=== PATIENT | female | born 1935 | race Caucasian/White ===

== ENCOUNTER 2019-01-08 15:14 | Inpatient (IN) ==
--- NOTE | 2019-01-08 20:41 | Internal Med History&Physical ---
<Bear Null - Last Filed: 01/09/19 02:15> Date of Encounter: 01/09/19 Time of Encounter: 21:40 Internal Medicine - H&P: HPI Chief complaint: Anemia Admitted From: Emergency Dept Plans for Post Hospital Care: Home History of present illness: Ms. Cabrales is a 83 year old female with past medical history of CHF, diabetes, glaucoma, hyperlipidemia, hypertension who presented to [place] emergency department from longterm facility ([facility]) after labs are drawn and showed a significant anemia. Of note, patient has dementia at baseline and is unable to provide a reliable history. History from chart review. Patient was found to have a hemoglobin of 2.9 in [facility]. Patient's baseline hemoglobin appears to be between 11 and 13. Patient is able answer questions at this time, her only complaint at this time is back pain. She denies any nausea, vomiting or changes in bowel movements. She does not remember any previous bleeding. She denies any ecchymosis. Per chart review, patient has had multiple endoscopies. She follows with Dr. May and had a colonoscopy on 09/07/12 showing proctitis with 2 polyps removed which were serrated adenomas with low-grade dysplasia. She also presents with possible rectal mass on 11/30/16 which showed rectal prolapse and underwent a robotic colectomy. She did see [facility] on 08/14/18 for complaint of positive fecal occult blood test. Colonoscopy was discussed this time however I am unable to see if this was done. In the [facility] emergency department, vital signs were stable. Laboratory results show a hemoglobin of 3.1, hematocrit 11.4, platelets 463. Coagulation studies showed INR of 1.2, PT mildly elevated at 14.0, APTT of 25.9. Chemistry showed sodium of 130, otherwise relatively unremarkable. Stool occult blood was positive. Patient unable to remember if she is on a blood thinner however home medications reviewed and patient is not on antiplatelet or inadequate ventilation. General surgery was called by [place] emergency department Past medical history: As above Past surgical history: ? Colectomy Social history: Unknown Family history: Unknown Past Med Surg Social Fam HX - Past Medical History Medical history: non-contributory, CHF, diabetes, glaucoma, hyperlipidemia, hypertension, other Additional medical history: H/O MENTAL ILLNESS. BERMUDEZ-RYAN SYNDROME. HYPOTENSION. ANGIO EDEMA. HYPERCALEMIA. PERIPHERAL NEUROPATHY Psychiatric history: depression - Past Surgical History Surgical History: other Additional surgical history: COLONOSCOPY 2013. 12/10/16 COLON RESECTION @[facility] W/DR MAY - Social History Smoking Status: Never smoker Smokeless Tobacco Status: No Alcohol use: none Drug use: unknown Internal Medicine - H&P: Meds Cyanocobalamin (Vitamin B-12) [Vitamin B-12] 1,000 mcg SL DAILY 12/10/16 [History] Latanoprost [Xalatan] 1 drop BOTH EYES HS 12/10/16 [History] Omeprazole [PriLOSEC] 20 mg PO DAILY 12/10/16 [History] Timolol [Betimol] 1 drop BOTH EYES QAM 12/10/16 [History] Atorvastatin [Lipitor] 20 mg PO HS 01/08/19 [History] Buspirone HCl [Buspar] 5 mg PO BID 01/08/19 [History] Cranberry Fruit [Cranberry] 900 mg PO DAILY 01/08/19 [History] Furosemide [Lasix] 20 mg PO DAILY 01/08/19 [History] HydrOXYzine [Atarax] 10 mg PO BID 01/08/19 [History] Metoprolol Succinate [Toprol Xl] 25 mg PO DAILY 01/08/19 [History] Mirtazapine [Remeron] 30 mg PO DAILY 01/08/19 [History] Potassium Chloride 20 meq PO DAILY 01/08/19 [History] risperiDONE [Risperdal] 0.25 mg PO QAM 01/08/19 [History] risperiDONE [Risperidone] 0.5 mg PO QPM 01/08/19 [History] Allergy/AdvReac Type Severity Reaction Status Date / Time Penicillins Allergy Rash Verified 12/10/16 10:47 ROS unobtainable: due to mental status All Systems PM: A 10-system review of systems was performed and is negative for pertinent findings except as documented above in the HPI. - Constitutional Vitals: Temp Pulse Resp BP Pulse Ox 99.1 F 83 18 147/80 91 01/08/19 20:36 01/08/19 20:36 01/08/19 20:36 01/08/19 20:36 01/08/19 20:36 Exam: Gen.: Vitals noted. No acute distress. AAOx3, resting comfortably in bed. Frail-appearing HEENT: PERRL/EOMI, oropharynx clear, Normocephalic, atraumatic, MMM, pale conjunctiva Cardiac: RRR, no murmur, +S1/S2, No BLE edema Pulmonary: CTA bilaterally, no wheezes, rales or rhonchi, equal chest expansion, unlabored breathing Abdomen: soft, mildly tender in epigastric region, BS noted, no guarding, no palpable HSM Skin: warm and dry, no visible lesions. MSK: ROM not assessed, no joint swelling noted, gait no assessed while in bed. Non tender calf or clubbing Neuro: A&Ox3, moves all extremities, no focal deficits, sensation intact Psych: AOx3. Patient does answer questions appropriately however does not appear to have accurate insight or judgment. Internal Med - H&P Results - Labs CBC & Chem 7: 01/08/19 20:35 - Assessment and Plan (1) Anemia Current Visit: Yes Status: Acute Assessment and plan: - Patient presents with severe anemia with hemoglobin of 2.8 on presentation - Patient did receive 2 units packed red blood cells and repeat hemoglobin up to 7.4 - Etiology suspect is GI in nature - FOBT was positive in the emergency room - Patient's baseline hemoglobin appears to be between 11 and 13 - Coagulation studies relatively unremarkable - Home medications did not show any evidence of anticoagulation or antiplatelets - Patient did have several outpatient endoscopies. - Colonoscopy on 09/07/12 shows proctitis with 2 polyp showing serrated adenoma with low dysplasia - Office visit on 11/30/16 shows prolapse of the rectum. At that time about colectomy was recommended - 08/14/18, office visit with [facility] for positive fecal occult blood. Unclear if patient did have colonoscopy at that time Plan - Patient transfused 2 units PRBC, will continue to trend hemoglobin every 6 hours - Repeat of 7.4, will infuse additional 1 unit - 20 mg IV Lasix after third unit to prevent fluid overload - Currently hemodynamically stable - [facility] has been consulted, appreciate recommendations Qualifiers: Anemia type: iron deficiency Iron deficiency anemia type: chronic blood loss Qualified Code(s): D50.0 - Iron deficiency anemia secondary to blood loss (chronic) (2) Guaiac + stool Current Visit: Yes Status: Acute Assessment and plan: - Suspect GI bleed for anemia as above (3) Dementia Current Visit: Yes Status: Chronic Assessment and plan: - Patient presents alert and oriented 3 and answering questions however the questions are often inappropriate - Suspect that this is baseline for patient - Consent for blood transfusions obtained from family - Continue to monitor Qualifiers: Dementia type: Alzheimer's disease Alzheimer's disease onset: unspecified onset Dementia behavioral disturbance: without behavioral disturbance Qualified Code(s): G30.9 - Alzheimer's disease, unspecified; F02.80 - Dementia in other diseases classified elsewhere without behavioral disturbance (4) HTN (hypertension) Current Visit: Yes Status: Chronic Assessment and plan: Hold antihypertensives in the setting of acute bleed Currently well-controlled Qualifiers: Hypertension type: essential hypertension Qualified Code(s): I10 - Essential (primary) hypertension (5) Diabetes Current Visit: Yes Status: Acute Assessment and plan: - Per chart review - Blood sugar of 110 in [facility] - Every 6 hours Accu-Cheks while patient is nothing by mouth - Low sliding scale insulin Qualifiers: Diabetes mellitus type: type 2 Diabetes mellitus senior living insulin use: without adjunct faculty for medical terminology use Diabetes mellitus complication status: without complication Qualified Code(s): E11.9 - Type 2 diabetes mellitus without complications (6) DVT prophylaxis Current Visit: Yes Status: Acute Assessment and plan: No chemical prophylaxis in the setting of GI bleed - Time Spent With Patient Total time spent is greater than 50% in coordination of care (as documented) at patient's floor/unit and/or counseling patient: <Ella Corbett Z - Last Filed: 01/11/19 12:46> Date of Encounter: 01/09/19 Internal Medicine - H&P: HPI History of present illness: Ms. Cabrales is a 83 year old female All Systems PM: A 10-system review of systems was performed and is negative for pertinent findings except as documented above in the HPI. - Constitutional Vitals: Temp Pulse Resp BP Pulse Ox 98.4 F 83 16 140/77 97 01/11/19 11:19 01/11/19 11:19 01/11/19 11:19 01/11/19 11:19 01/11/19 11:19 Internal Med - H&P Results - Labs CBC & Chem 7: 01/11/19 01:01 01/11/19 01:01 Labs: Short CBC 01/10/19 01/11/19 Range/Units 17:54 01:01 WBC 11.8 H (4.3-11.1) K/mcL Hgb 8.5 L D 7.9 L (11.5-15.4) g/dL Hct 27.3 L 25.5 L (35.3-44.9) % Plt Count 264 (140-400) K/mcL BMP 01/11/19 01:01 Sodium 134 L Potassium 3.9 Chloride 102 Carbon Dioxide 27 BUN 13 Creatinine 0.68 Glucose 124 H Calcium 7.8 L Liver Function 01/11/19 Range/Units 01:01 Total Bilirubin 0.4 (0.3-1.0) mg/dL AST 12 L (13-39) Units/L ALT 22 (7-52) Units/L Alkaline Phosphatase 80 (34-104) Units/L Albumin 2.4 L (3.5-5.7) g/dL - Assessment and Plan (1) Anemia Current Visit: Yes Status: Acute Qualifiers: Anemia type: iron deficiency Iron deficiency anemia type: chronic blood loss Qualified Code(s): D50.0 - Iron deficiency anemia secondary to blood loss (chronic) (2) Melena Current Visit: Yes Status: Acute (3) Dementia Current Visit: Yes Status: Chronic Qualifiers: Dementia type: Alzheimer's disease Alzheimer's disease onset: unspecified onset Dementia behavioral disturbance: without behavioral disturbance Qualified Code(s): G30.9 - Alzheimer's disease, unspecified; F02.80 - Dementia in other diseases classified elsewhere without behavioral disturbance (4) HTN (hypertension) Current Visit: Yes Status: Chronic Qualifiers: Hypertension type: essential hypertension Qualified Code(s): I10 - Essen tial (primary) hypertension (5) Diabetes Current Visit: Yes Status: Chronic Qualifiers: Diabetes mellitus type: type 2 Diabetes mellitus senior living insulin use: without adjunct faculty for medical terminology use Diabetes mellitus complication status: without complication Qualified Code(s): E11.9 - Type 2 diabetes mellitus without complications (6) DVT prophylaxis Current Visit: Yes Status: Acute (7) Colon polyp Current Visit: Yes Status: Acute Qualifiers: Colon polyp type: unspecified Colon location: sigmoid Qualified Code(s): D12.5 - Benign neoplasm of sigmoid colon - Time Spent With Patient Total time spent is greater than 50% in coordination of care (as documented) at patient's floor/unit and/or counseling patient: - Attending Attestation I performed a history and physical examination of the patient and discussed his management with the resident. I reviewed the residents note and agree with the documented findings and plan of care.
[2019-01-08 20:58] LABS: Basophils % 0.3 %; Eosinophils # 0.1 K/mcL (0.0-0.6); Eosinophils % 0.9 %; Hematocrit 23.6 % (35.3-44.9); Hemoglobin 7.2 g/dL (11.5-15.4); Immature Granulocytes % 0.9 % (0-4); Lymphocytes # 1.6 K/mcL (0.6-4.6); Lymphocytes % 15.5 %; Mean Corpuscular HGB Conc 30.5 g/dL (31.6-35.5); Mean Corpuscular Volume 75.4 fL (83.0-100.0); Mean Platelet Volume 10.4 fL (9.4-12.4); Monocytes % 10.1 %; Neutrophils # 7.3 K/mcL (1.6-8.9); Nucleated Red Blood Cells 0.4 /100 WBC (0); Platelet Count 462 K/mcL (140-400); Red Blood Count 3.13 M/mcL (3.82-4.97); Red Cell Distribution Width 24.4 % (11.5-14.5); Segmented Neutrophils % 72.3 %; White Blood Count 10.1 K/mcL (4.3-11.1)
[2019-01-08] MEDS ORDERED: Naloxone 0.4 MG/ML INJ IVP PRN (21:02)
[2019-01-08] MEDS ORDERED: Ondansetron 4 MG/2 ML VIAL IVP PRN (21:02)
[2019-01-08] MEDS ORDERED: Furosemide 20 MG/2 ML VIAL IVP ONE (21:14)
[2019-01-08] MEDS ORDERED: 0.9 % Sodium Chloride 1,000 ML IVC SCH (21:15)
[2019-01-08 21:22] LABS: Hypochromasia Present (Not Present)
[2019-01-08 21:23] LABS: Anisocytosis 1+ (Not Present); Basophilic Stippling 1+ (Not Present)
--- NOTE | 2019-01-08 21:30 | AcuteCare Surgery Consult Note ---
Date of Encounter: 01/09/19 Time of Encounter: 21:00 Assessment and Plan (1) Anemia Current Visit: Yes Status: Inactive Severe. Unable to obtain from pt a hx of symptoms c/w symptomatic anemia. Agree with transfusion 2 units PRBC. Hgb after blood transfusion was 7.2. Recommend colonoscopy. Indications for colonoscopy are discussed in detail with pt at bedside and with her brother by phone who is her medical POA. Procedure, risk and benefits of colonscopy are discussed. Pt understands risks and possible complications. Possible complications include but, are not limited to bleeding, infection or perforation. Pt understands and wishes to proceed as recommended. Consent is obtained. Inpatient colonoscopy is scheduled. Prep today and scope tomorrow. Qualifiers: Anemia type: iron deficiency Iron deficiency anemia type: chronic blood loss Qualified Code(s): D50.0 - Iron deficiency anemia secondary to blood loss (chronic) (2) Guaiac + stool Current Visit: Yes Status: Acute see above (3) Melena Current Visit: Yes Status: Acute see above (4) HTN (hypertension) Current Visit: Yes Status: Chronic Stable; primary service to manage. Qualifiers: Hypertension type: essential hypertension Qualified Code(s): I10 - Essential (primary) hypertension (5) Diabetes Current Visit: Yes Status: Acute stable; primary service to manage Qualifiers: Diabetes mellitus type: type 2 Diabetes mellitus group home insulin use: without ocean transportation intermediary use Diabetes mellitus complication status: without complication Qualified Code(s): E11.9 - Type 2 diabetes mellitus without complications (6) Dementia Current Visit: Yes Status: Chronic Qualifiers: Dementia type: Alzheimer's disease Alzheimer's disease onset: unspecified onset Dementia behavioral disturbance: without behavioral disturbance Qualified Code(s): G30.9 - Alzheimer's disease, unspecified; F02.80 - Dementia in other diseases classified elsewhere without behavioral disturbance History of Present Illness Consult date: 01/08/19 Reason for consult: other (anemia) Requesting physician: Bear Null History of present illness: This 83 y/o female presents to [facility] ED from a usp due to Hgb 2.9. Hgb was repeated and found to be 3.3. Pt had dementia and is an unreliable historian. However, she denies abdominal pain. She reports melenotic stools. She denies BRBPR. She denies N/V. She reports normal appetite. She cannot confirm surgical hx but, her record indicates hx of CANCELLED surgery in 2017 for colectomy for rectal prolapse. Past Med Surg Social Fam HX - Past Medical History Medical history: non-contributory, CHF, diabetes, glaucoma, hyperlipidemia, hypertension, other Additional medical history: H/O MENTAL ILLNESS. BERMUDEZ-RYAN SYNDROME. HYPOTENSION. ANGIO EDEMA. HYPERCALEMIA. PERIPHERAL NEUROPATHY Psychiatric history: depression - Past Surgical History Surgical History: other Additional surgical history: COLONOSCOPY 2012. 12/10/16 COLON RESECTION @[facility] W/DR MAY - Social History Smoking Status: Never smoker Smokeless Tobacco Status: No Alcohol use: none Drug use: unknown Medications and Allergies Cyanocobalamin (Vitamin B-12) [Vitamin B-12] 1,000 mcg SL DAILY 12/10/16 [History] Latanoprost [Xalatan] 1 drop BOTH EYES HS 12/10/16 [History] Omeprazole [PriLOSEC] 20 mg PO DAILY 12/10/16 [History] Timolol [Betimol] 1 drop BOTH EYES QAM 12/10/16 [History] Atorvastatin [Lipitor] 20 mg PO HS 01/08/19 [History] Buspirone HCl [Buspar] 5 mg PO BID 01/08/19 [History] Cranberry Fruit [Cranberry] 900 mg PO DAILY 01/08/19 [History] Furosemide [Lasix] 20 mg PO DAILY 01/08/19 [History] HydrOXYzine [Atarax] 10 mg PO BID 01/08/19 [History] Metoprolol Succinate [Toprol Xl] 25 mg PO DAILY 01/08/19 [History] Mirtazapine [Remeron] 30 mg PO DAILY 01/08/19 [History] Potassium Chloride 20 meq PO DAILY 01/08/19 [History] risperiDONE [Risperdal] 0.25 mg PO QAM 01/08/19 [History] risperiDONE [Risperidone] 0.5 mg PO QPM 01/08/19 [History] Allergy/AdvReac Type Severity Reaction Status Date / Time Penicillins Allergy Rash Verified 12/10/16 10:47 Review of Systems All systems PM: The remainder of the systems were reviewed and are negative - Constitutional no anorexia, no chills, no fatigue, no fever(s), no night sweats, no weakness, no weight gain, no weight loss - EENT Nose, mouth and throat: dry mouth, no dizziness, no nasal congestion, no nasal discharge, no sinus pain, no sinus pressure, no sore throat - Cardiovascular no chest pain, no dyspnea, no edema - Respiratory no cough, no dyspnea, no wheezing - Gastrointestinal melena, no abdominal pain, no constipation, no diarrhea, no heartburn, no nausea, no vomiting - Genitourinary Genitourinary: no difficulty urinating, no dysuria, no flank pain - Musculoskeletal no back pain, no joint swelling, no limited range of motion, no neck pain - Integumentary dry skin, no pruritus, no rash, no wounds, no jaundice - Psychiatric confusion, memory loss - Hematologic/Lymphatic no easy bleeding, no easy bruising General Surgery Exam Initial Vital Signs Temp Pulse Resp BP Pulse Ox 99.1 F 83 18 147/80 91 01/08/19 20:36 01/08/19 20:36 01/08/19 20:36 01/08/19 20:36 01/08/19 20:36 - General physical appearance no distress, no pain. negative: jaundice - Eyes PERRL, normal ocular movement. negative: icteric - ENT no congestion, dry mucosa. negative: nasal discharge - Neck no masses, trachea midline, no lymphadectomy, no venous distension - Respiratory normal respiratory effort, clear to auscultation - Cardiovascular Cardiovascular exam: Present: RRR. Absent: JVD - Abdomen Abdomen general surgery: Present: bowel sounds present, soft, non tender. Absent: distended - Genitourinary Present: normal external genitalia - Integumentary Integumentary general surgery: Present: warm and dry - Neurologic Present: normal coordination, confused - Musculoskeletal Present: normal posture - Psychiatric Psychiatric general surgery: Present: oriented to place Exam Initial Vital Signs Temp Pulse Resp BP Pulse Ox 99.1 F 83 18 147/80 91 01/08/19 20:36 01/08/19 20:36 01/08/19 20:36 01/08/19 20:36 01/08/19 20:36 Results - Labs 01/08/19 20:35 Abnormal lab results RBC 3.13 M/mcL (3.82-4.97) L 01/08/19 20:35 Hgb 7.2 g/dL (11.5-15.4) L D 07/08/19 20:35 Hct 23.6 % (35.3-44.9) L 01/08/19 20:35 MCV 75.4 fL (83.0-100.0) L D 01/08/19 20:35 MCH 23.0 pg (28.0-33.3) L 01/08/19 20:35 MCHC 30.5 g/dL (31.6-35.5) L 01/08/19 20:35 RDW 24.4 % (11.5-14.5) H 01/08/19 20:35 Plt Count 462 K/mcL (140-400) H 01/08/19 20:35 Nucleated RBCs/100 WBC 0.4 /100 WBC (0) H 01/08/19 20:35 Present (Not Present) A 01/08/19 20:35 1+ (Not Present) A 01/08/19 20:35 1+ (Not Present) A 01/08/19 20:35 All other labs normal. Consult Discharge Plan - Plan Referrals: NONE,PCP [Primary Care Provider] -
[2019-01-08] MEDS: Pantoprazole 40 MG VIAL IVP SCH (21:42)
[2019-01-08] MEDS ORDERED: *HR* Dextrose 50 % in Water (Syg) 50 ML SYRINGE IVP PRN (23:47)
[2019-01-08] MEDS ORDERED: D5% in Water 1,000 ML IVC PRN (23:47)
[2019-01-08] MEDS ORDERED: Dextrose Gel 15 GM/37.5 ML TUBE PO PRN ×2 (23:47)
[2019-01-09] MEDS: Insulin LISPRO 300 UNITS/3 ML VIAL SQ SCH ×3 (01:35→11:51)
[2019-01-09 04:39] LABS: INR 1.1; Prothrombin Time 12.8 Seconds (9.4-12.1)
[2019-01-09 04:40] LABS: Estimated Average Glucose 120 mg/dl
[2019-01-09 04:41] LABS: Basophils % 0.4 %; Eosinophils # 0.1 K/mcL (0.0-0.6); Eosinophils % 0.9 %; Hematocrit 23.3 % (35.3-44.9); Hemoglobin 7.3 g/dL (11.5-15.4); Immature Granulocytes % 0.9 % (0-4); Lymphocytes % 11.4 %; Mean Corpuscular HGB Conc 31.3 g/dL (31.6-35.5); Mean Corpuscular Hemoglobin 24.1 pg (28.0-33.3); Mean Corpuscular Volume 76.9 fL (83.0-100.0); Mean Platelet Volume 10.7 fL (9.4-12.4); Monocytes # 0.8 K/mcL (0.0-1.3); Monocytes % 9.5 %; Neutrophils # 6.6 K/mcL (1.6-8.9); Nucleated Red Blood Cells 0.4 /100 WBC (0); Platelet Count 374 K/mcL (140-400); Red Blood Count 3.03 M/mcL (3.82-4.97); Red Cell Distribution Width 21.8 % (11.5-14.5); Segmented Neutrophils % 76.9 %; White Blood Count 8.5 K/mcL (4.3-11.1)
[2019-01-09 04:42] LABS: Activated Partial Thrombo Time 25.8 Seconds (26.0-36.0)
[2019-01-09 05:21] LABS: BUN/Creatinine Ratio 22 (6-26); Blood Urea Nitrogen 15 mg/dL (8-23); Calcium 8.3 mg/dL (8.6-10.3); Carbon Dioxide 31 mEq/L (23-29); Chloride 99 mEq/L (98-107); Glucose 106 mg/dL (70-105); Osmolality,Calculated 287 (280-300); Potassium 2.6 mEq/L (3.5-5.1); Sodium 138 mEq/L (136-145); eGFR For African Americans > 60 (> 60); eGFR For Non-African Americans > 60 (> 60)
[2019-01-09] MEDS ORDERED: Potassium Chloride 40 MEQ, Lidocaine 1% 2 ML in D5% in Water 500 ML IVPB ONE (05:53)
[2019-01-09] MEDS: Pantoprazole 40 MG VIAL IVP SCH ×2 (05:58→18:34)
[2019-01-09] MEDS ORDERED: Pantoprazole 40 MG VIAL IVP SCH (06:00)
[2019-01-09 08:49] LABS: Magnesium 1.7 mg/dL (1.6-2.6)
[2019-01-09] MEDS ORDERED: *HR* Propofol 200 MG/20 ML VIAL IVP ONE ×2 (11:46→12:12)
[2019-01-09] MEDS ORDERED: Lidocaine -MPF 2% 2 ML VIAL ONE (11:47)
--- NOTE | 2019-01-09 12:25 | Anesthesia Evaluation PreOp ---
Date of Encounter: 01/09/19 Time of Encounter: 12:22 - Past History Planned Operation: Colonoscopy Cardiac History: CHF, HTN, Hyperlipidemia Pulmonary History: Smoker IT ADMIN History: Other (dementia) Other Medical History: Diabetes Type II, GERD Anesthesia History: No Prior Anesthetic Complications, Past Anesthesia Alcohol Use: none Drug use: unknown Medications and Allergies Cyanocobalamin (Vitamin B-12) [Vitamin B-12] 1,000 mcg SL DAILY 12/10/16 [History] Latanoprost [Xalatan] 1 drop BOTH EYES HS 12/10/16 [History] Omeprazole [PriLOSEC] 20 mg PO DAILY 12/10/16 [History] Timolol [Betimol] 1 drop BOTH EYES QAM 12/10/16 [History] Atorvastatin [Lipitor] 20 mg PO HS 01/08/19 [History] Buspirone HCl [Buspar] 5 mg PO BID 01/08/19 [History] Cranberry Fruit [Cranberry] 900 mg PO DAILY 01/08/19 [History] Furosemide [Lasix] 20 mg PO DAILY 01/08/19 [History] HydrOXYzine [Atarax] 10 mg PO BID 01/08/19 [History] Metoprolol Succinate [Toprol Xl] 25 mg PO DAILY 01/08/19 [History] Mirtazapine [Remeron] 30 mg PO DAILY 01/08/19 [History] Potassium Chloride 20 meq PO DAILY 01/08/19 [History] risperiDONE [Risperdal] 0.25 mg PO QAM 01/08/19 [History] risperiDONE [Risperidone] 0.5 mg PO QPM 01/08/19 [History] Allergy/AdvReac Type Severity Reaction Status Date / Time Penicillins Allergy Rash Verified 12/10/16 10:47 - Meds/Allergy Pre-op Review Medications Reviewed: Yes Allergies Reviewed: Yes Beta Blockers on Current Med List: Yes Anesthesia Results - Labs 01/09/19 03:29 01/09/19 03:29 - Imaging EKG: report reviewed (12/03/2016 SINUS RHYTHM WITH SINUS ARRHYTHMIA) Anesthesia Exam Vital Signs/O2 Sat/Glucose, Most Recent Temp Pulse Resp BP Pulse Ox 98.6 F 70 18 140/75 98 01/09/19 11:08 01/09/19 11:08 01/09/19 11:08 01/09/19 11:08 01/09/19 11:08 Blood Glucose* 102 - HEENT Pupil (Motor): EOMI Mallampati: II Teeth: Missing, Poor dentition Denture Type: Upper: Complete Oral Opening: Greater than 3 - IT ADMIN LOC: Oriented IT ADMIN Motor: Normal RUE, Normal LUE, Normal RLE, Normal LLE, Normal Face IT ADMIN Sensory: Normal: RUE, LUE, RLE, LLE, Face - Cardiac Rhythm: Regular Murmur: None - Pulmonary Breath Sounds: bilateral Clear Respiratory Effort: Symmetrical Anesthesia Assess/Plan ASA Score: 3 Level of consciousness: Cooperative, Oriented, Tranquil Anesthetic Plan: MAC Recovery Plan: PACU
[2019-01-09 14:17] LABS: Basophils % 0.4 %; Eosinophils # 0.1 K/mcL (0.0-0.6); Eosinophils % 0.6 %; Hemoglobin 7.4 g/dL (11.5-15.4); Immature Granulocytes % 0.9 % (0-4); Lymphocytes # 0.8 K/mcL (0.6-4.6); Lymphocytes % 8.1 %; Mean Corpuscular HGB Conc 29.6 g/dL (31.6-35.5); Mean Corpuscular Hemoglobin 23.7 pg (28.0-33.3); Mean Corpuscular Volume 80.1 fL (83.0-100.0); Mean Platelet Volume 10.1 fL (9.4-12.4); Monocytes # 0.8 K/mcL (0.0-1.3); Neutrophils # 8.2 K/mcL (1.6-8.9); Nucleated Red Blood Cells 0.2 /100 WBC (0); Platelet Count 320 K/mcL (140-400); Red Blood Count 3.12 M/mcL (3.82-4.97); Red Cell Distribution Width 22.8 % (11.5-14.5)
--- NOTE | 2019-01-09 14:27 | Acute Care Surgery Event Note ---
Date of Encounter: 01/09/19 Time of Encounter: 14:00 Colonoscopy was negative for GI bleeding. Resume regular diet. Suspect anemia is not from acute blood loss. Check iron profile. Pt has responded appropriately to transfusion of pRBC. If H&H remains stable then DC home with f/u PCP or dental technician. Surgery signing off. Thank you for allowing us to participate in this pt's care.
[2019-01-09 14:59] LABS: % Iron Saturation 4 % (15-50); BUN/Creatinine Ratio 20 (6-26); Blood Urea Nitrogen 13 mg/dL (8-23); Calcium 7.9 mg/dL (8.6-10.3); Carbon Dioxide 30 mEq/L (23-29); Chloride 101 mEq/L (98-107); Glucose 107 mg/dL (70-105); Iron 18 mcg/dL (50-170); Osmolality,Calculated 287 (280-300); Potassium 3.3 mEq/L (3.5-5.1); Sodium 138 mEq/L (136-145); Transferrin 302 mg/dL (203-362); eGFR For African Americans > 60 (> 60); eGFR For Non-African Americans > 60 (> 60)
--- NOTE | 2019-01-09 17:51 | Internal Med Progress Note ---
Hospitalist Progress Note - Encounter Date of Encounter: 01/09/19 Time of Encounter: 09:15 - Subjective Interval History: No acute events overnight. Patient denied any fever, chills or masses. Patient had no abdominal pain, nausea or vomiting. She had no bloody bowel movements overnight. - Exam Vitals: Temp Pulse Resp BP Pulse Ox 97.8 F 731 18 122/74 92 01/09/19 15:56 01/09/19 15:56 01/09/19 15:56 01/09/19 15:56 01/09/19 15:56 Exam: Gen.: Vitals noted. No acute distress. AAOx3, resting comfortably in bed. Frail-appearing HEENT: PERRL/EOMI, oropharynx clear, Normocephalic, atraumatic, MMM, pale conjunctiva Cardiac: RRR, no murmur, +S1/S2, No BLE edema Pulmonary: CTA bilaterally, no wheezes, rales or rhonchi, equal chest expansion, unlabored breathing Abdomen: soft, mildly tender in epigastric region, BS noted, no guarding, no palpable HSM Skin: warm and dry, no visible lesions. MSK: ROM not assessed, no joint swelling noted, gait no assessed while in bed. Non tender calf or clubbing Neuro: A&Ox3, moves all extremities, no focal deficits, sensation intact Psych: AOx3. Patient does answer questions appropriately however does not appear to have accurate insight or judgment. - Assessment and Plan (1) Anemia Current Visit: Yes Status: Acute (2) DVT prophylaxis Current Visit: Yes Status: Acute (3) Diabetes Current Visit: Yes Status: Chronic (4) Melena Current Visit: Yes Status: Acute (5) Dementia Current Visit: Yes Status: Chronic (6) HTN (hypertension) Current Visit: Yes Status: Chronic (7) Colon polyp Current Visit: Yes Status: Acute - Summary of Assessment and Plan Summary of Assessment and Plan: Ms. Cabrales is a 83 year old female with past medical history of CHF, diabetes, glaucoma, hyperlipidemia, hypertension who presented to [place] emergency department [facility] after labs are drawn and showed a significant anemia. Patient responded very well to 3 units of PRBCs and she experienced no hematochezia or melena why she is in the hospital. 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 - No melena or hematochezia noted while in the hospital. - Colonoscopy did reveal 1 polyp that was resected. - Check ferritin level, if it low, we can start on IV iron while in the hospital and switched to oral supplements at the [facility]. Dementia: - Continue home medication. Type II DM: - Accu-Chek 3 times a day before meals. Low side is getting insulin. HTN: - Her home medication when on hold due to hypotension at presentation. We can resume. DVT prophylaxis: On SCD - Time Spent with Patient Total time spent is greater than 50% in coordination of care (as documented) at patient's floor/unit and/or counseling patient: Plan of Care Discussed with: patient Internal Medicine: Result - Labs CBC & Chem 7: 01/09/19 13:59 01/09/19 13:59 Labs: Short CBC 01/08/19 01/09/19 01/09/19 Range/Units 20:35 03:29 13:59 WBC 10.1 8.5 10.0 (4.3-11.1) K/mcL Hgb 7.2 L D 7.3 L 7.4 L (11.5-15.4) g/dL Hct 23.6 L 23.3 L 25.0 L (35.3-44.9) % Plt Count 462 H 374 320 (140-400) K/mcL Neutrophils # 7.3 6.6 8.2 (1.6-8.9) K/mcL BMP 01/09/19 01/09/19 03:29 13:59 Sodium 138 138 Potassium 2.6 L D 3.3 L D Chloride 99 101 Carbon Dioxide 31 H 30 H BUN 15 13 Creatinine 0.69 0.66 Glucose 106 H 107 H Calcium 8.3 L 7.9 L - ABG Interpretation ABG results: PT/INR, D-dimer PT 12.8 Seconds (9.4-12.1) H 01/09/19 03:29 Consult Discharge Plan - Plan Referrals: NONE,PCP [Primary Care Provider] - (1) Anemia Qualifiers: Anemia type: iron deficiency Iron deficiency anemia type: chronic blood loss Qualified Code(s): D50.0 - Iron deficiency anemia secondary to blood loss (chronic) (3) Diabetes Qualifiers: Diabetes mellitus type: type 2 Diabetes mellitus nursing home insulin use: without squeegee finisher use Diabetes mellitus complication status: without complication Qualified Code(s): E11.9 - Type 2 diabetes mellitus without complications (5) Dementia Qualifiers: Dementia type: Alzheimer's disease Alzheimer's disease onset: unspecified onset Dementia behavioral disturbance: without behavioral disturbance Qualified Code(s): G30.9 - Alzheimer's disease, unspecified; F02.80 - Dementia in other diseases classified elsewhere without behavioral disturbance (6) HTN (hypertension) Qualifiers: Hypertension type: essential hypertension Qualified Code(s): I10 - Essential (primary) hypertension (7) Colon polyp Qualifiers: Colon polyp type: unspecified Colon location: sigmoid Qualified Code(s): D12.5 - Benign neoplasm of sigmoid colon
[2019-01-09 18:13] LABS: Basophils % 0.3 %; Eosinophils # 0.1 K/mcL (0.0-0.6); Eosinophils % 0.6 %; Hematocrit 25.9 % (35.3-44.9); Hemoglobin 8.1 g/dL (11.5-15.4); Immature Granulocytes % 0.9 % (0-4); Lymphocytes # 1.2 K/mcL (0.6-4.6); Lymphocytes % 9.9 %; Mean Corpuscular HGB Conc 31.3 g/dL (31.6-35.5); Mean Corpuscular Hemoglobin 24.4 pg (28.0-33.3); Mean Platelet Volume 10.6 fL (9.4-12.4); Monocytes # 0.9 K/mcL (0.0-1.3); Monocytes % 7.7 %; Neutrophils # 9.4 K/mcL (1.6-8.9); Nucleated Red Blood Cells 0.3 /100 WBC (0); Platelet Count 395 K/mcL (140-400); Red Blood Count 3.32 M/mcL (3.82-4.97); Red Cell Distribution Width 22.3 % (11.5-14.5); Segmented Neutrophils % 80.6 %; White Blood Count 11.7 K/mcL (4.3-11.1)
[2019-01-10 05:20] LABS: Basophils % 0.2 %; Eosinophils # 0.1 K/mcL (0.0-0.6); Hematocrit 22.3 % (35.3-44.9); Hemoglobin 6.9 g/dL (11.5-15.4); Immature Granulocytes % 0.5 % (0-4); Lymphocytes % 11.1 %; Mean Corpuscular HGB Conc 30.9 g/dL (31.6-35.5); Mean Corpuscular Hemoglobin 24.3 pg (28.0-33.3); Mean Corpuscular Volume 78.5 fL (83.0-100.0); Mean Platelet Volume 10.6 fL (9.4-12.4); Monocytes # 1.1 K/mcL (0.0-1.3); Monocytes % 10.1 %; Nucleated Red Blood Cells 0.2 /100 WBC (0); Platelet Count 315 K/mcL (140-400); Red Blood Count 2.84 M/mcL (3.82-4.97); Red Cell Distribution Width 23.3 % (11.5-14.5); Segmented Neutrophils % 77.1 %; White Blood Count 11.2 K/mcL (4.3-11.1)
[2019-01-10 05:27] LABS: Lymphocytes # 1.2 K/mcL (0.6-4.6); Neutrophils # 8.6 K/mcL (1.6-8.9)
[2019-01-10] MEDS: Pantoprazole 40 MG VIAL IVP SCH ×2 (05:30→15:30)
[2019-01-10 05:41] LABS: BUN/Creatinine Ratio 17 (6-26); Blood Urea Nitrogen 14 mg/dL (8-23); Calcium 8.3 mg/dL (8.6-10.3); Carbon Dioxide 29 mEq/L (23-29); Chloride 98 mEq/L (98-107); Glucose 113 mg/dL (70-105); Osmolality,Calculated 279 (280-300); Potassium 3.6 mEq/L (3.5-5.1); Sodium 134 mEq/L (136-145); eGFR For African Americans > 60 (> 60); eGFR For Non-African Americans > 60 (> 60)
[2019-01-10 06:56] LABS: Anisocytosis 1+ (Not Present); Hypochromasia Present (Not Present); Microcytosis Present (Not Present)
[2019-01-10 06:57] LABS: Platelet Estimate Normal (Normal); Poikilocytosis 1+ (Not Present)
[2019-01-10] MEDS ORDERED: 0.9 % Sodium Chloride 250 ML ONE (11:35)
--- NOTE | 2019-01-10 11:50 | Internal Med Progress Note ---
Hospitalist Progress Note - Encounter Date of Encounter: 01/10/19 Time of Encounter: 11:48 - Subjective Interval History: The patient was seen and examined at the bedside No fever last 24-hour Denies shortness of breath or chest pain Nausea or vomiting Hemoglobin dropped to 6.9 discussed with the last 2-4 units of blood transfusion I discussed GI FOR POSSIBLE EGD - Exam Vitals: Temp Pulse Resp BP Pulse Ox 99.4 F 88 18 128/69 95 01/10/19 11:30 01/10/19 11:30 01/10/19 11:30 01/10/19 11:30 01/10/19 11:30 Exam: Physical examination: Gen.: Patient is alert and oriented, not in respiratory distress of pain HEENT: perrla , EOMI, no thyroid gland enlargement, no neck mass, supple neck Heart: S1 and S2 jefry, normal sinus rhythm, no cardiac murmur no gallop rhythm Chest: Air entry equal bilaterally, clear chest, no wheezing, crackles or crepitation Abdomen: Soft nontender nondistended positive bowel sounds, no organomegaly Extremities: No pitting edema, peripheral pulses palpable, no cyanosis tenderness Neuro: Able to move all 4 limbs, no focal neurological deficit. DVT Prophylaxis: scd - Summary of Assessment and Plan Summary of Assessment and Plan: Ms. Cabrales is a 83 year old female with past medical history of CHF, diabetes, glaucoma, hyperlipidemia, hypertension who [facility] [place] [facility] after labs are drawn and showed a significant anemia. Patient responded very well to 3 units of PRBCs and she experienced no hematochezia or melena why she is in the hospital. Her symptoms are managed as following: acute microcytic Anemia: - acute on chronic , to r/o GI loss - Hemoglobin dropped to 6.9 today, order another 1 unit blood transfusion status post 3 PRBCs. - No melena or hematochezia noted while in the hospital. - Colonoscopy did reveal 1 polyp that was resected - low iron store i did consult GI for possible EGD - continue on PPI iv Dementia: - Continue home medication. Type II DM: - Accu-Chek 3 times a day before meals. Low side is getting insulin. HTN: - continue on current management DVT prophylaxis: On SCD - Time Spent with Patient Total time spent is greater than 50% in coordination of care (as documented) at patient's floor/unit and/or counseling patient: Internal Medicine: Result - Labs CBC & Chem 7: 01/10/19 04:30 01/10/19 04:30 Labs: Short CBC 01/09/19 01/09/19 01/10/19 Range/Units 13:59 17:49 04:30 WBC 10.0 11.7 H 11.2 H (4.3-11.1) K/mcL Hgb 7.4 L 8.1 L 6.9 L (11.5-15.4) g/dL Hct 25.0 L 25.9 L 22.3 L (35.3-44.9) % Plt Count 320 395 315 (140-400) K/mcL Neutrophils # 8.2 9.4 H 8.6 (1.6-8.9) K/mcL BMP 01/09/19 01/10/19 13:59 04:30 Sodium 138 134 L Potassium 3.3 L D 3.6 Chloride 101 98 Carbon Dioxide 30 H 29 BUN 13 14 Creatinine 0.66 0.84 Glucose 107 H 113 H Calcium 7.9 L 8.3 L - ABG Interpretation ABG results: PT/INR, D-dimer PT 12.8 Seconds (9.4-12.1) H 01/09/19 03:29 Consult Discharge Plan - Plan Referrals: NONE,PCP [Primary Care Provider] -
[2019-01-10] MEDS ORDERED: *HR* Heparin 5,000 UNIT/ML VIAL SQ SCH (14:00)
[2019-01-10 18:27] LABS: Hematocrit 27.3 % (35.3-44.9)
[2019-01-10 18:32] LABS: Hemoglobin 8.5 g/dL (11.5-15.4)
[2019-01-10] MEDS: risperiDONE 0.25 MG TABLET PO SCH (20:33)
[2019-01-11 01:25] LABS: Hematocrit 25.5 % (35.3-44.9); Hemoglobin 7.9 g/dL (11.5-15.4); Mean Corpuscular Hemoglobin 25.4 pg (28.0-33.3); Mean Platelet Volume 10.5 fL (9.4-12.4); Platelet Count 264 K/mcL (140-400); Red Blood Count 3.11 M/mcL (3.82-4.97); Red Cell Distribution Width 22.9 % (11.5-14.5); White Blood Count 11.8 K/mcL (4.3-11.1)
[2019-01-11 01:43] LABS: Alanine Aminotransferase 22 Units/L (7-52); Albumin 2.4 g/dL (3.5-5.7); Albumin/Globulin Ratio 1.1 (1.1-2.2); Alkaline Phosphatase 80 Units/L (34-104); Aspartate Amino Transferase 12 Units/L (13-39); BUN/Creatinine Ratio 19 (6-26); Bilirubin,Total 0.4 mg/dL (0.3-1.0); Blood Urea Nitrogen 13 mg/dL (8-23); Calcium 7.8 mg/dL (8.6-10.3); Carbon Dioxide 27 mEq/L (23-29); Chloride 102 mEq/L (98-107); Globulin 2.2 g/dL (2.4-3.5); Glucose 124 mg/dL (70-105); Magnesium 1.7 mg/dL (1.6-2.6); Osmolality,Calculated 280 (280-300); Phosphorous 2.9 mg/dL (2.7-4.5); Potassium 3.9 mEq/L (3.5-5.1); Sodium 134 mEq/L (136-145); Total Protein 4.6 g/dL (6.4-8.9); eGFR For African Americans > 60 (> 60); eGFR For Non-African Americans > 60 (> 60)
[2019-01-11] MEDS: Pantoprazole 40 MG VIAL IVP SCH ×2 (05:16→16:20)
[2019-01-11] MEDS: risperiDONE 0.25 MG TABLET PO SCH ×2 (08:03→20:38)
[2019-01-11] MEDS ORDERED: Simethicone 40 MG/0.6 ML MLS IR ONE (09:16)
[2019-01-11] MEDS ORDERED: Tetracaine/Benzocaine/Butamben 1 SPRAY AEROSOL MM ONE (09:16)
[2019-01-11] MEDS ORDERED: *HR* FentaNYL (PF) 100 MCG/2 ML VIAL IVP ONE (09:16)
[2019-01-11] MEDS ORDERED: *HR* Midazolam HCl 5 MG/5 ML VIAL IVP ONE ×2 (09:16→09:21)
--- NOTE | 2019-01-11 09:16 | Acute Care Surgery Event Note ---
Date of Encounter: 01/11/19 Time of Encounter: 08:00 The patient is seen and evaluated on morning rounds. She had profound anemia on admission to the hospital. Initial colonoscopy found that the previous colon surgery was intact with no evidence of bleeding. She now presents for upper endoscopy now that she is completely resuscitated. We will plan upper endoscopy to rule out bleeding source for her anemia
--- NOTE | 2019-01-11 09:18 | Pre-Sedation Evaluation ---
Pre-sedation evaluation - Pre-sedation checklist Date of procedure: 01/11/19 Procedure: EGD Recent Vitals: Last Vital Signs Temp 98.5 F 01/11/19 09:12 Pulse 80 01/11/19 09:12 Resp 20 01/11/19 09:12 BP 148/72 01/11/19 09:12 Pulse Ox 98 01/11/19 09:12 H&P (including ROS) documented in medical record: Yes Previous reaction to sedatives/anesthetics: No Dietary Status: NPO after Midnight Dentition: No loose teeth or bridges Possible difficult airway: No ASA Classification *see protocol: CLASS III-Severe systemic disease Plan of Care: Pt appropriate candidate for procedure/moderate/conscious sedation, Risks/benefits of procedure/sedation discussed w/ patient/family Cardiac Registry (Cardio Only) - Clincal Frailty Scale Clinical Frailty Scale: Moderately Frail
[2019-01-11] MEDS ORDERED: *HR* FentaNYL (PF) 100 MCG/2 ML VIAL ONE (09:21)
--- NOTE | 2019-01-11 09:47 | Event Note ---
Date of Encounter: 01/11/19 Time of Encounter: 09:30 The patient underwent upper endoscopy. 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 These are not bleeding. She also has reflux esophagitis. Biopsies were taken. Stomach was otherwise normal duodenum was otherwise normal. Regular diet. Naresh Whitlock MD FACS
[2019-01-11] MEDS: 0.9 % Sodium Chloride 1,000 ML IVC SCH ×2 (12:32→22:16)
--- NOTE | 2019-01-11 13:21 | Internal Med Progress Note ---
Hospitalist Progress Note - Encounter Date of Encounter: 01/11/19 Time of Encounter: 13:19 - Subjective Interval History: the patient was seen and examined at bedside. she denies CP or SOB there are many scared small rounded wounds on patient back upon asked patient about feeling safe at home, she said there are sometime mean i discussed with case mgr who confirm that patient live in custodial and not at home. the patient has advanced dementia - Exam Vitals: Temp Pulse Resp BP Pulse Ox 98.4 F 83 16 140/77 97 01/11/19 11:19 01/11/19 11:19 01/11/19 11:19 01/11/19 11:19 01/11/19 11:19 Exam: Physical examination: Gen.: Patient is alert, not in respiratory distress of pain HEENT: perrla , EOMI, no thyroid gland enlargement, no neck mass, supple neck Heart: S1 and S2 jefry, normal sinus rhythm, no cardiac murmur no gallop rhythm Chest: Air entry equal bilaterally, clear chest, no wheezing, crackles or crepitation Abdomen: Soft nontender nondistended positive bowel sounds, no organomegaly Extremities: No pitting edema, peripheral pulses palpable, no cyanosis tenderness scared small rounded healed wounds on patient back Neuro: Able to move all 4 limbs, no focal neurological deficit. DVT Prophylaxis: scd - Summary of Assessment and Plan Summary of Assessment and Plan: Ms. Cabrales is a 83 year old female with past medical history of CHF, diabetes, glaucoma, hyperlipidemia, hypertension who presented to [place] emergency department from [facility]) after labs are drawn and showed a significant anemia. Patient responded very well to 3 units of PRBCs and she experienced no hematochezia or melena why she is in the hospital. Her symptoms are managed as following: acute microcytic Anemia: - acute on chronic , - Hemoglobin dropped to 6.9 yesterday s/p 1 unit blood transfusion already got 3 PRBCs before underwent EGD today with finding of Davis ulcers at the mucosal fold over lying the diaphragmatic hiatus reflection on a large hiatal hernia. These are not bleeding. She also has reflux esophagitis. Biopsies were taken. Stomach was otherwise normal duodenum was otherwise normal. on Regular diet. - No melena or hematochezia noted while in the hospital. - Colonoscopy did reveal 1 polyp that was resected - low iron store, on iron supplement i did consult GI for possible EGD - continue on PPI iv - hb today 7.9 after blood transfusion - LFT normal Dementia: - Continue home medication. Type II DM: - Accu-Chek 3 times a day before meals. Low side is getting insulin. HTN: - continue on current management DVT prophylaxis: On SCD - Time Spent with Patient Total time spent is greater than 50% in coordination of care (as documented) at patient's floor/unit and/or counseling patient: Internal Medicine: Result - Labs CBC & Chem 7: 01/11/19 01:01 01/11/19 01:01 Labs: Short CBC 01/10/19 01/11/19 Range/Units 17:54 01:01 WBC 11.8 H (4.3-11.1) K/mcL Hgb 8.5 L D 7.9 L (11.5-15.4) g/dL Hct 27.3 L 25.5 L (35.3-44.9) % Plt Count 264 (140-400) K/mcL BMP 01/11/19 01:01 Sodium 134 L Potassium 3.9 Chloride 102 Carbon Dioxide 27 BUN 13 Creatinine 0.68 Glucose 124 H Calcium 7.8 L Liver Function 01/11/19 Range/Units 01:01 Total Bilirubin 0.4 (0.3-1.0) mg/dL AST 12 L (13-39) Units/L ALT 22 (7-52) Units/L Alkaline Phosphatase 80 (34-104) Units/L Albumin 2.4 L (3.5-5.7) g/dL - ABG Interpretation ABG results: PT/INR, D-dimer PT 12.8 Seconds (9.4-12.1) H 01/09/19 03:29 Consult Discharge Plan - Plan Referrals: NONE,PCP [Primary Care Provider] -
--- NOTE | 2019-01-11 16:17 | Event Note ---
Date of Encounter: 01/11/19 Time of Encounter: 16:14 Surgical team completed colonoscopy . Dr. Whitlock taking patient for EGD today. GI will sign off. Feel free to reconsult or call if any GI concerns.
[2019-01-11] MEDS: Acetaminophen 325 MG TABLET PO PRN (16:20)
[2019-01-12] MEDS: Acetaminophen 325 MG TABLET PO PRN (02:40)
[2019-01-12] MEDS: Pantoprazole 40 MG VIAL IVP SCH (05:19)
[2019-01-12 06:55] LABS: Hematocrit 25.8 % (35.3-44.9); Hemoglobin 7.8 g/dL (11.5-15.4); Mean Corpuscular HGB Conc 30.2 g/dL (31.6-35.5); Mean Corpuscular Hemoglobin 25.4 pg (28.0-33.3); Mean Platelet Volume 10.7 fL (9.4-12.4); Platelet Count 220 K/mcL (140-400); Red Blood Count 3.07 M/mcL (3.82-4.97); Red Cell Distribution Width 24.6 % (11.5-14.5); White Blood Count 7.2 K/mcL (4.3-11.1)
[2019-01-12 07:41] LABS: Alanine Aminotransferase 17 Units/L (7-52); Albumin 2.5 g/dL (3.5-5.7); Albumin/Globulin Ratio 1.1 (1.1-2.2); Alkaline Phosphatase 85 Units/L (34-104); Aspartate Amino Transferase 12 Units/L (13-39); BUN/Creatinine Ratio 19 (6-26); Bilirubin,Total 0.3 mg/dL (0.3-1.0); Blood Urea Nitrogen 13 mg/dL (8-23); Calcium 8.4 mg/dL (8.6-10.3); Carbon Dioxide 26 mEq/L (23-29); Chloride 105 mEq/L (98-107); Globulin 2.3 g/dL (2.4-3.5); Glucose 101 mg/dL (70-105); Magnesium 1.8 mg/dL (1.6-2.6); Osmolality,Calculated 286 (280-300); Phosphorous 3.4 mg/dL (2.7-4.5); Potassium 3.8 mEq/L (3.5-5.1); Sodium 138 mEq/L (136-145); Total Protein 4.8 g/dL (6.4-8.9); eGFR For African Americans > 60 (> 60); eGFR For Non-African Americans > 60 (> 60)
[2019-01-12] MEDS: risperiDONE 0.25 MG TABLET PO SCH (08:21)
[2019-01-12 11:51] VITALS: BP 154/93
--- NOTE | 2019-01-12 12:06 | Discharge Summary ---
Orders not resulted at time of discharge: Pending orders 01/11/19 09:48 Surgical Pathology [PTH] Routine 01/13/19 04:00 Complete Blood Count w/o Diff [HEME] AM 0400 Comprehensive Metabolic Panel AM 0400 Magnesium AM 0400 Phosphorous AM 0400 01/14/19 04:00 Complete Blood Count w/o Diff [HEME] AM 0400 Comprehensive Metabolic Panel AM 0400 Phosphorous AM 0400 need to check CBC and BMP in 3 days on 01/15 Date of Encounter: 01/12/19 Time of Encounter: 12:04 - Discharge Diagnosis (1) Anemia Priority: Primary Status: Acute Assessment and Plan: Acute microcytic Anemia: - acute on chronic , - Hemoglobin dropped to 6.9 yesterday s/p 1 unit blood transfusion already got 3 PRBCs before underwent EGD today with finding of Davis ulcers at the mucosal fold over lying the diaphragmatic hiatus reflection on a large hiatal hernia. These are not bleeding. She also has reflux esophagitis. Biopsies were taken. Stomach was otherwise normal duodenum was otherwise normal. on Regular diet. - No melena or hematochezia noted while in the hospital. - Colonoscopy did reveal 1 polyp that was resected - low iron store, on iron supplement i did consult GI for possible EGD - continue on PPI iv - hb today 7.9 after blood transfusion - LFT normal Qualifiers: Anemia type: iron deficiency Iron deficiency anemia type: chronic blood loss Qualified Code(s): D50.0 - Iron deficiency anemia secondary to blood loss (chronic) Hospital course: Ms. Cabrales is a 83 year old female with history of CHF diabetes hyperlipidemia hypertension and advanced dementia, was than of long-term was admitted because of acute microcytic anemia, patient received a total 4 units of blood transfusion, because hemoglobin was 2.9 on admission, patient does not remember any previous bleeding patient had multiple endoscopies in the past, surgery was consulted, patient is started on PPI IV, patient initially underwent colonoscopy with negative results, and then underwent EGD ( because of low hemoglobin) show davis Ulcer of the Mucosal Fold over lying the diaphragmatic hiatus reflection on a large hiatal hernia. These are not bleeding. She also has reflux esophagitis. Biopsies were taken. Stomach was otherwise normal duodenum was otherwise normal. at date of discahrge , Hb stable at 7.8, has low iron stduies, started on iron supplement and recommend pantoprazole 40 mg daily , check another CBC in 3 days on 01/15, if low Hb then need possible capsule endoscopy to r/o Small bowel b ivettding LFT normal, INR 1.1, no pancytopenia, no clear evidence of bleeding, no melena or hematemsis. it is unlikely Bone marrow disease. patient is hemodynamically stable an will be d/c back to SNF - Time Spent with Patient Total time spent providing and/or coordinating discharge services: 34 min - Discharge Medications Prescriptions: New Ferrous Sulfate 325 mg PO DAILY@0800 #15 tablet Omeprazole [PriLOSEC] 40 mg PO DAILY@0630 capsule.dr Mckeon Cyanocobalamin (Vitamin B-12) [Vitamin B-12] 1,000 mcg SL DAILY Latanoprost [Xalatan] 1 drop BOTH EYES HS Timolol [Betimol] 1 drop BOTH EYES QAM risperiDONE [Risperdal] 0.25 mg PO QAM Potassium Chloride 20 meq PO DAILY Mirtazapine [Remeron] 30 mg PO DAILY Metoprolol Succinate [Toprol Xl] 25 mg PO DAILY Furosemide [Lasix] 20 mg PO DAILY HydrOXYzine [Atarax] 10 mg PO BID Cranberry Fruit [Cranberry] 900 mg PO DAILY Buspirone HCl [Buspar] 5 mg PO BID Atorvastatin [Lipitor] 20 mg PO HS risperiDONE [Risperidone] 0.5 mg PO QPM Discontinued Omeprazole [PriLOSEC] 20 mg PO DAILY Home Medications: Cyanocobalamin (Vitamin B-12) [Vitamin B-12] 1,000 mcg SL DAILY 12/10/16 [History] Latanoprost [Xalatan] 1 drop BOTH EYES HS 12/10/16 [History] Timolol [Betimol] 1 drop BOTH EYES QAM 12/10/16 [History] Atorvastatin [Lipitor] 20 mg PO HS 01/08/19 [History] Buspirone HCl [Buspar] 5 mg PO BID 01/08/19 [History] Cranberry Fruit [Cranberry] 900 mg PO DAILY 01/08/19 [History] Furosemide [Lasix] 20 mg PO DAILY 01/08/19 [History] HydrOXYzine [Atarax] 10 mg PO BID 01/08/19 [History] Metoprolol Succinate [Toprol Xl] 25 mg PO DAILY 01/08/19 [History] Mirtazapine [Remeron] 30 mg PO DAILY 01/08/19 [History] Potassium Chloride 20 meq PO DAILY 01/08/19 [History] risperiDONE [Risperdal] 0.25 mg PO QAM 01/08/19 [History] risperiDONE [Risperidone] 0.5 mg PO QPM 01/08/19 [History] Ferrous Sulfate 325 mg PO DAILY@0800 #15 tablet 01/12/19 [Rx] Omeprazole [PriLOSEC] 40 mg PO DAILY@0630 capsule. 01/12/19 [Rx] Allergies/Adverse Reactions: Allergy/AdvReac Type Severity Reaction Status Date / Time Penicillins Allergy Rash Verified 12/10/16 10:47 Date of admission: 01/08/19 19:58 Primary care physician: PCP NONE Consults: 01/08/19 21:03 Consult to Surgery [CONS] Routine Consulting Provider: Acute Care Surgery Reason for Consult: GI bleed Call Completed: Yes 01/10/19 10:38 Consult to Gastroenterology [CONS] Routine Consulting Provider: [facility] [place] Reason for Consult: acute anemia Call Completed: Yes - Constitutional Vitals: Temp Pulse Resp BP Pulse Ox 98.9 F 82 18 154/93 98 01/12/19 11:49 01/12/19 11:49 01/12/19 11:49 01/12/19 11:49 01/12/19 11:49 Exam: Physical examination: Gen.: Patient is alert, not in respiratory distress of pain HEENT: perrla , EOMI, no thyroid gland enlargement, no neck mass, supple neck Heart: S1 and S2 jefry, normal sinus rhythm, no cardiac murmur no gallop rhythm Chest: Air entry equal bilaterally, clear chest, no wheezing, crackles or crepitation Abdomen: Soft nontender nondistended positive bowel sounds, no organomegaly Extremities: No pitting edema, peripheral pulses palpable, no cyanosis tenderness scared small rounded healed scar on patient back, which is chronic and old. Neuro: Able to move all 4 limbs, no focal neurological deficit. - Patient Status Disposition: Transfer SNF Condition: Fair - Discharge Instructions Instructions: Anemia (GEN) Follow Up With: NONE,PCP [Primary Care Provider] -
--- NOTE | 2019-01-12 13:05 | Physician Discharge Referral ---
ExtendedCare Referral Info Transfer To: SNF - Diagnosis (1) Anemia Priority: Primary Status: Acute Prognosis: Fair - Transfer Medications Prescriptions: Ferrous Sulfate 325 mg PO DAILY@0800 #15 tablet Home Medications: Cyanocobalamin (Vitamin B-12) [Vitamin B-12] 1,000 mcg SL DAILY 12/10/16 [History] Latanoprost [Xalatan] 1 drop BOTH EYES HS 12/10/16 [History] Timolol [Betimol] 1 drop BOTH EYES QAM 12/10/16 [History] Atorvastatin [Lipitor] 20 mg PO HS 01/08/19 [History] Buspirone HCl [Buspar] 5 mg PO BID 01/08/19 [History] Cranberry Fruit [Cranberry] 900 mg PO DAILY 01/08/19 [History] Furosemide [Lasix] 20 mg PO DAILY 01/08/19 [History] HydrOXYzine [Atarax] 10 mg PO BID 01/08/19 [History] Metoprolol Succinate [Toprol Xl] 25 mg PO DAILY 01/08/19 [History] Mirtazapine [Remeron] 30 mg PO DAILY 01/08/19 [History] Potassium Chloride 20 meq PO DAILY 01/08/19 [History] risperiDONE [Risperdal] 0.25 mg PO QAM 01/08/19 [History] risperiDONE [Risperidone] 0.5 mg PO QPM 01/08/19 [History] Ferrous Sulfate 325 mg PO DAILY@0800 #15 tablet 01/12/19 [Rx] Omeprazole [PriLOSEC] 40 mg PO DAILY@0630 capsule. 01/12/19 [Rx] Allergies/Adverse Reactions: Allergy/AdvReac Type Severity Reaction Status Date / Time Penicillins Allergy Rash Verified 12/10/16 10:47 - Respiratory Orders Smoking Cessation: Smoking cessation has been advised. For more information, call the [place] Tobacco Quit Line at 6-311-TTWH-NOW. - Lab Orders Lab Orders: CBC CERTIFICATION: I certify that the transfer of the above named patient to an Extended Care Facility is necessary for the continuing treatment of the diagnosis listed. The above information is true and accurate reflection of patient's current condition. Confidential - Redisclosure prohibited without a patient's written consent.
== END 2019-01-12 14:15 | DRG 379 ==
LOC: 2NNU 19:58 → SUATTDRO 19:58
PROVIDERS: ADMIT Internal Medicine; ATTEND Internal Medicine
PROC: ENDOCBX (2019-01-09 18:15)
PROC: ENDOEBX (2019-01-11 09:30)